=== PATIENT | male | born 1990 | race Hispanic/Latino ===

== ENCOUNTER 2024-01-08 08:10 | Emergency (ER) | payer BC | END 2024-01-08 09:45 | disposition home or self-care (01) | LOC: ERS 08:10 | DX: K64.4 Residual hemorrhoidal skin tags (principal); Z55.6 Problems related to health literacy | CPT/HCPCS: 99283 ==

== ENCOUNTER 2024-06-05 14:35 | Emergency (ER) | payer BC ==
[2024-06-05 15:28] LABS: #Basophils 0.06 10x3/uL (0.0-0.2); %Basophils 0.6 % (0.0-1.0); %Eosinophils 4.1 % (0.0-10.0); %Lymphocytes 17.8 % (21.0-51.0); %Monocytes 6.8 % (0.0-10.0); %Neutrophils 70.5 % (42.0-75.0); Hematocrit 41.8 % (42.0-52.0); Hemoglobin 13.4 g/dL (14.0-18.0); Mean Corpuscular HGB CONC 32.1 g/dL (32.0-36.0); Mean Corpuscular Volume 81.2 fL (78.0-98.0); Mean Platelet Volume 9.7 fL (7.4-10.4); Platelet Count 292 10x3/uL (130-400); RBC Distribution Width 15.9 % (11.5-14.5); Red Blood Cell (RBC) Count 5.15 mill/uL (4.70-6.10)
[2024-06-05 15:48] LABS: Anion Gap 12 mmol/L (10-20); BUN (Urea Nitrogen) 16 mg/dL (8.9-20.6); Calc. Creatinine Clearance 0 mL/min (70-130); Carbon Dioxide 23 mmol/L (22-29); Chloride 107 mmol/L (98-107); Potassium 4.2 mmol/L (3.5-5.1); Sodium 138 mmol/L (136-145)
[2024-06-05 15:49] LABS: ALT (SGPT) 27 U/L (8-55); AST (SGOT) 16 U/L (5-34); Alkaline Phosphatase 56 U/L (40-110); Bilirubin, Total 0.4 mg/dL (0.2-1.2); Calcium 9.1 mg/dL (7.8-10.44); Estimated GFR 116; Glucose 111 mg/dL (70-105); Lipase 11 U/L (8-78); Protein, Total 7.7 g/dL (6.0-8.3)
[2024-06-05 15:54] LABS: Troponin I Less than 0.010 ng/mL (< 0.028)
[2024-06-05 16:16] LABS: Albumin 3.3 g/dL (3.5-5.0); Globulin 4.4 g/dL (2.4-3.5)
== END 2024-06-05 16:30 | disposition home or self-care (01) ==
LOC: ERS 14:35
DX: R10.9 Unspecified abdominal pain (principal)
CPT/HCPCS: 36415; 71045; 80053; 83690; 84484; 85025; 93005